=== PATIENT | male | born 1965 | race African-American/Black ===

== ENCOUNTER 2016-11-19 10:32 | Emergency (ER) | payer OTHER ==
[~2016-11-19 10:32] MED LIST: CIP5 PO; DORYX100 MG PO; HYDROCHLOROT25 MG PO; P20 PO; PT DENIES HOME MEDS
== END 2016-11-19 10:49 | disposition home or self-care (01) ==
LOC: ER 10:32
DX: L98.9 Disorder of the skin and subcutaneous tissue, unspecified (principal); F17.200 Nicotine dependence, unspecified, uncomplicated; Z79.52 Long term (current) use of systemic steroids; Z79.899 Other long term (current) drug therapy
CPT/HCPCS: 99283

== ENCOUNTER 2016-12-15 06:52 | Emergency (ER) | payer OTHER | END 2016-12-15 06:54 | disposition home or self-care (01) | LOC: ER 06:52 | DX: M54.5 Low back pain (principal); F17.200 Nicotine dependence, unspecified, uncomplicated; Z79.82 Long term (current) use of aspirin; Z79.899 Other long term (current) drug therapy | CPT/HCPCS: 96372; 99283; J1885 ==